=== PATIENT | female | born 2005 | race Caucasian/White ===

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

== ENCOUNTER 2023-01-08 08:00 | Outpatient (CLI) | payer BC, MEDICAID ==
[2023-01-08 11:47] LABS: HCT - HEMATOCRIT 45.3 % (37.0-47.0); HGB - HEMOGLOBIN 14.2 g/dL (12.0-16.0); MEAN CORPUSCULAR HEMOGLOBIN 27.5 pg (27.0-31.0); MEAN CORPUSCULAR HGB CONC 31.3 g/dL (32.0-36.0); MEAN CORPUSCULAR VOLUME 87.6 fL (81.0-99.0); MEAN PLATELET VOLUME 10.1 fL (7.9-10.8); RED BLOOD COUNT 5.17 10^6/uL (4.20-5.40); RED CELL DISTRIBUTION WIDTH 13.2 % (12.0-15.0); WHITE BLOOD COUNT 11.6 x10^3/uL (4.8-10.8)
[2023-01-08 12:10] LABS: ALBUMIN 4.6 g/dL (3.2-5.5); ALBUMIN/GLOBULIN RATIO 1.5 (1.0-2.2); BILIRUBIN,TOTAL 0.3 mg/dL (0.2-1.0); CALCIUM 9.8 mg/dL (8.5-10.3); CREATININE 0.8 mg/dL (0.6-1.3); POTASSIUM 3.5 mmol/L (3.5-4.5); TOTAL PROTEIN 7.6 g/dL (6.4-8.9)
[2023-01-08 12:48] LABS: THYROID STIMULATING HORMONE 5.41 uIU/mL (0.34-5.60)
[2023-01-08 20:48] LABS: CHLAMYDIA TRACHOMATIS DNA NEGATIVE (NEGATIVE); NEISSERIA GONORRHOEAE DNA NEGATIVE (NEGATIVE)
[2023-01-08 21:35] LABS: BACTERIAL VAGINOSIS DNA NEGATIVE (NEGATIVE); CANDIDA GLABRATA DNA NEGATIVE (NEGATIVE); CANDIDA GROUP DNA POSITIVE (NEGATIVE); CANDIDA KRUSEI DNA NEGATIVE (NEGATIVE); TRICHOMONAS VAGINALIS DNA NEGATIVE (NEGATIVE)
== END 2023-01-08 08:15 | disposition home or self-care (01) ==
LOC: LAB.N 08:00
PROVIDERS: ATTEND Specialist
DX: R10.9 Unspecified abdominal pain (principal); K59.00 Constipation, unspecified; N76.0 Acute vaginitis
CPT/HCPCS: 36415; 80053; 81514; 83690; 84443; 85027; 87491; 87591; 87661

== ENCOUNTER 2023-06-11 18:53 | Outpatient (CLI) | payer OTHER, BC, MEDICAID | END 2023-06-11 23:59 | disposition critical access hospital (66) | LOC: EMS 18:53 | DX: M25.531 Pain in right wrist (principal); M25.562 Pain in left knee; V89.2XXA Person injured in unspecified motor-vehicle accident, traffic, initial encounter; Y92.414 Local residential or business street as the place of occurrence of the external cause | CPT/HCPCS: A0425; A0429 ==

== ENCOUNTER 2023-06-11 19:17 | Emergency (ER) | payer OTHER, BC, MEDICAID ==
[2023-06-11 19:24] VITALS: BP 127/75; O2SAT 100
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
[2023-06-11] MEDS: IBUPROFEN 800 MG TABLET PO STA (20:28)
[2023-06-11] MEDS: ACETAMINOPHEN 325 MG TABLET PO STA (20:29)
--- NOTE | 2023-06-11 21:10 | XRAY Report ---
PROCEDURE: Wrist 3+V LT INDICATIONS: wrist inj TECHNIQUE: 3 views of the wrist were acquired. COMPARISON: None. FINDINGS: Bones: No fractures or dislocations. No suspicious bony lesions. Soft tissues: No suspicious soft tissue calcifications or masses. IMPRESSION: No visualized acute fracture or dislocation. However, occult injury cannot be excluded. Recommend komal rt interval imaging follow-up in 7-10 days as clinically indicated for additional evaluation. Reviewed by: Thuy Brandt MD on 06/11/2023 9:09 PM PDT Approved by: Thuy Brandt MD on 06/11/2023 9:09 PM PDT Station ID: [id number]
--- NOTE | 2023-06-11 21:11 | XRAY Report ---
PROCEDURE: Hand 3+V RT INDICATIONS: hand inj TECHNIQUE: 3 views of the hand(s) acquired. COMPARISON: X-ray wrist for [id number] FINDINGS: Bones: No fractures or dislocations. No suspicious bony lesions. Soft tissues: No suspicious soft tissue calcifications or masses. IMPRESSION: No visualized acute fracture or dislocation. However, occult injury cannot be excluded. Recommend komal rt interval imaging follow-up in 7-10 days as clinically indicated for additional evaluation. Reviewed by: Thuy Brandt MD on 06/11/2023 9:10 PM PDT Approved by: Thuy Brandt MD on 06/11/2023 9:10 PM PDT Station ID: [id number]
--- NOTE | 2023-06-11 21:11 | XRAY Report ---
PROCEDURE: Knee 4+V LT INDICATIONS: knee inj TECHNIQUE: 4 views of the knee(s) were acquired. COMPARISON: None. FINDINGS: Bones: No fractures or dislocations. No suspicious bony lesions. Soft tissues: No knee joint effusion. No suspicious soft tissue calcifications or masses. IMPRESSION: No visualized acute fracture or dislocation. However, occult injury cannot be excluded. Recommend komal rt interval imaging follow-up in 7-10 days as clinically indicated for additional evaluation. Reviewed by: Thuy Brandt MD on 06/11/2023 9:09 PM PDT Approved by: Thuy Brandt MD on 06/11/2023 9:09 PM PDT Station ID: [id number]
== END 2023-06-11 20:50 | disposition home or self-care (01) ==
LOC: EDUNIT# → ED 19:17
DX: S63.502A Unspecified sprain of left wrist, initial encounter (principal); S63.91XA Sprain of unspecified part of right wrist and hand, initial encounter; S89.92XA Unspecified injury of left lower leg, initial encounter; V43.62XA Car passenger injured in collision with other type car in traffic accident, initial encounter; Y92.488 Other paved roadways as the place of occurrence of the external cause
CPT/HCPCS: 73110; 73130; 73564; 99284; A9270